=== PATIENT | female | born 1975 | race Caucasian/White ===

== ENCOUNTER 2016-05-22 16:19 | Emergency (ER) | payer BC ==
[~2016-05-22] VITALS: Ht 160 cm; Wt 66.7 kg
[~2016-05-22 16:19] MED LIST: ALBUTEROL SULF8.5 GM INH; CANAASA1000 MG RECTAL; IMURAN50 MG PO; LIALDA1.2 GM ORAL; PREDNISONE20 MG ORAL
--- NOTE | 2016-05-22 18:57 | Emergency Room Report ---
History of Present Illness General Chief Complaint: Stroke Symptoms Source: Patient, Medical Record Present Illness HPI 40-year-old female presents to emergency Department complaining of left-sided facial numbness in addition to changes in her vision. Patient denies pain in the eye or headaches. Patient denies dizziness nausea or vomiting. Patient describes her visual changes as vision through the left thigh is "dimmer "been out of the right denies blurry vision denies floaters denies loss of visual field. Denies photophobia. Eyes imbalance or recent head trauma. She states she has a history of ulcerative colitis, and has been taking them he modulating medications. Patient denies history of neoplastic disease in the family or personal history. Patient denies significant changes in weight, loss of smell, night sweats. Patient denies facial droop or left-sided extremity weakness. Patient denies recent travel or history of blood clots. Denies rashes. reports hx of shingles of the right hip. Patient states she is not currently taking hormonal replacement or -control. Patient denies . Denies numbness tingling or loss of sensation or gross motor movements of the extremities, incontinence of bowel or bladder. Denies CP, Palpitations, LOC, AMS , dizziness, Changes in Vision, Sensation, paresthesias, or a sudden severe headache. Allergies: Coded Allergies: LATEX (Verified Allergy, Intermediate, Itching, 06/10/15) Patient History Past Medical History: see triage record Past Surgical History: none Pertinent Family History: none Last Menstrual Period: 05/19/2016 Now: No : 3 Para: 1 Reviewed Nursing Documentation: PMH: Agreed, PSxH: Agreed Nursing Documentation-PMH Hx Cardiac Problems: No Hx Cancer: No Hx Neurological Problems: No Review of Systems All Other Systems: negative except mentioned in HPI Physical Exam Vital Signs Date Time Temp Pulse Resp B/P Pulse Ox O2 Delivery O2 Flow Rate FiO2 05/22/16 16:21 98.2 89 16 123/89 99 Room Air Sp02 EP Interpretation: reviewed, normal General Appearance: no apparent distress, alert, GCS 15, non-toxic Head: normocephalic, atraumatic Eyes: bilateral eye EOMI, bilateral eye PERRL, bilateral eye normal inspection , bilateral eye other - no eye pain, no injection, normal visual field. , bilateral eye visual acuity ENT: hearing grossly normal, normal pharynx, no angioedema, normal voice, TMs + canals normal - excessive cerumen bilaterally Neck: full range of motion, supple/symm/no masses Respiratory: chest non-tender, lungs clear, normal breath sounds, speaking full sentences Cardiovascular #1: regular rate, rhythm, no edema, normal capillary refill Genitourinary: no CVA tenderness Musculoskeletal: back normal, gait/station normal, normal range of motion, non- tender Neurologic: alert, oriented x3, responsive, motor strength/tone normal, sensory intact, cerebellar normal, normal gait, speech normal, no pronator, other - no facial droop, no rashes, equal advertising columnist strength, negative hammer's Psychiatric: judgement/insight normal, memory normal, mood/affect normal, no suicidal/homicidal ideation Skin: normal color, no rash, warm/dry, well hydrated Lymphatic: no adenopathy Medical Decision Making PA Attestation Dr. Meza is my supervising Physician whom patient management has been discussed with. Diagnostic Impression: Primary Impression: Facial paresthesia Additional Impressions: Visual changes Excessive cerumen in both ear canals ER Course 40-year-old female presents to emergency Department complaining of left-sided facial numbness in addition to changes in her vision. Patient denies pain in the eye or headaches. Patient denies dizziness nausea or vomiting. Patient describes her visual changes as vision through the left thigh is "dimmer "been out of the right denies blurry vision denies floaters denies loss of visual field. Denies photophobia. Eyes imbalance or recent head trauma. She states she has a history of ulcerative colitis, and has been taking them he modulating medications. Patient denies history of neoplastic disease in the family or personal history. Patient denies significant changes in weight, loss of smell, night sweats. Patient denies facial droop or left-sided extremity weakness. Patient denies recent travel or history of blood clots. Patient states she is not currently taking hormonal replacement or -control. Patient denies . Ddx considered but are not limited to intracranial mass, retinal detachment, acute glaucoma, CVA/TIA, migraine equivalent just to name a few Vital signs: are WNL, pt. is afebrile H&PE are most consistent with facial paresthesia and visual changes, no PE evidence to suggest stroke, no focal neurological deficit. ORDERS: -CT HEAD No Contrast: No evidence of acute fracture, hemorrhage, or intracranial process, left ear canal may have cerumen vs polyp Per: official radiology report. ED INTERVENTIONS: None required at this time. DISCHARGE: At this time pt. is stable for d/c to home. Will provide printed patient care instructions, and any necessary prescriptions. Care plan and follow up instructions have been discussed with the patient prior to discharge. Last Vital Signs Date Time Temp Pulse Resp B/P Pulse Ox O2 Delivery O2 Flow Rate FiO2 05/22/16 16:21 98.2 89 16 123/89 99 Room Air Disposition: HOME, SELF-CARE Condition: Stable Scripts Carbamide Peroxide (DEBROX) 15 Ml Drops 10 DROP BOTH EARS TWICE A DAY for 4 Days, #15 ML 0 Refills Prov: Graciela Belle 05/22/16 Referrals: LAINEY SWEENEY (PCP) Patient Instructions: Paresthesia, [id number] Additional Instructions: Take medications as directed. Follow up with PCP in 3 days Return sooner to ED if new symptoms occur, or current symptoms become worse. - Please note that this Emergency Department Report was dictated using [employer] all operator technology software, occasionally this can lead to erroneous entry secondary to interpretation by the dictation equipment. Graciela Belle May 22, 2016 18:57
[2016-05-22] MEDS ORDERED: DEBROX15 M1 BOTH EARS (18:59)
[2016-05-22 19:20] VITALS: BP 118/81
--- NOTE | 2016-05-23 08:49 | Diagnostic Imaging Report ---
Indication: PAIN Technique: Continuous helical CT scanning of the head was performed without intravenous contrast material. Axial and coronal 5 mm sections were generated. Radiation dose was minimized using automated exposure control Dose: Total Dose Length Product - DLP [address] Dose Index - CTDIvol(s) 70.38 mGy. Comparison: None Findings: The ventricular system is normal in size and configuration. There is no shift of midline structures. No abnormal extra-axial fluid collections are noted. There is no evidence of intracerebral bleeding. No other abnormal high or low density areas are noted within the brain. Impression: Normal CT scan of the head without contrast material. The CT scanner at [facility] is accredited by the [employer] and the scans are performed using protocols designed to limit radiation exposure to as low as reasonably achievable to attain images of sufficient resolution adequate for diagnostic evaluation. Noncontrast
== END 2016-05-22 19:22 | disposition home or self-care (01) ==
LOC: EMR 17:54
DX: R20.2 Paresthesia of skin (principal); H53.9 Unspecified visual disturbance; Z91.040 Latex allergy status
CPT/HCPCS: 70450; 99283

== ENCOUNTER 2016-07-25 10:01 | Outpatient (CLI) | payer BC ==
[~2016-07-25 10:01] MED LIST changes: +DEBROX15 M1 BOTH EARS
[2016-07-25 10:18] VITALS: BP 117/73
--- NOTE | 2016-07-25 10:50 | GI Progress Note ---
Assessment/Plan Problems: (1) Abdominal pain ICD Codes: R10.9 - Unspecified abdominal pain SNOMED: 27118291 (2) LFTs abnormal ICD Codes: R79.89 - Other specified abnormal findings of blood chemistry SNOMED: 370336123 (3) UC Status: stable Status Narrative Seen with Dr. Jones. Assessment/Plan Rx refill, cont Lialda 1.2 gm 2 tabs daily repeat colonoscopy x 1 years for UC education given: avoid NSAIDS, stress reduction to prevent flare ups. RTC if symptoms persist. Subjective Subjective abdominal pain x 1 week, pain now resolved left peripheral vision loss x 3 months takes lialda 1.2 gm 2 tabs qday Objective Last 24 Hour Vital Signs Date Time Temp Pulse Resp B/P Pulse Ox O2 Delivery O2 Flow Rate FiO2 07/25/16 10:18 98.6 75 16 117/73 General Appearance: no apparent distress, alert Cardiovascular: normal rate Respiratory/Chest: normal breath sounds, no respiratory distress Abdominal Exam: normal bowel sounds, non tender, soft Extremities: normal range of motion Objective Abd U/S (May) unremarkable. - taken due to elevated LFTs >> AST 47, ALT 83. 4-4-17 >> AST 12, ALT 17 Sapphire Sinclair N.P. July 25, 2016 10:49
== END 2016-07-25 10:30 | disposition home or self-care (01) ==
LOC: PAN 10:01
DX: R10.9 Unspecified abdominal pain (principal); R79.89 Other specified abnormal findings of blood chemistry
CPT/HCPCS: 99211